=== PATIENT | female | born 1975 | race Caucasian/White ===

== ENCOUNTER → 2016-12-27 17:15 | Outpatient (CLI) | payer MEDICAID ==
[2014-06-08 08:58] VITALS: BMI 31.2
[~2016-12-27 17:15] MED LIST: CELEBREX200 MG PO; LEVOXYL200 MCG PO
== END | disposition home or self-care (01) ==
LOC: D.MAMMO 16:00
DX: Z12.31 Encounter for screening mammogram for malignant neoplasm of breast (principal)

== ENCOUNTER 2018-10-22 11:00 | Outpatient (CLI) | payer MEDICAID ==
[2014-06-08 08:58] VITALS: BMI 31.2
== END 2018-10-22 11:30 | disposition home or self-care (01) ==
LOC: D.MAMMO 11:00
PROVIDERS: ATTEND General Practice
DX: Z12.31 Encounter for screening mammogram for malignant neoplasm of breast (principal)